=== PATIENT | male | born 1960 | race Caucasian/White ===

== ENCOUNTER 2017-01-15 01:15 | Emergency (ER) | payer BC, OTHER ==
[2017-01-15] MEDS ORDERED: predniSONE 20 MG TABLET (UD) PO ONE (02:18)
--- NOTE | 2017-01-15 02:23 | PDOC ---
History of Present Illness - General History Source: Patient Exam Limitations: No Limitations - History of Present Illness Initial Comments: 01/15/17 02:30 The patient is a 56 year old male with significant past medical history of COPD , asthma, and anxiety who presents to the ED with 2 days of difficulty breathing. Patient reports his SOB is worsened when lying supine and thus needed to add an extra pillow. He states using his ventolin about 8x yesterday and 4x tonight with no improvement. He also has complaints of wheezing and dry cough. He denies history of hospitalizations or intubations for his asthma exacerbation. The patient denies fever, chills, diaphoresis, chest pain, and palpitations. The patient denies abdominal pain, nausea, vomiting, and diarrhea. Allergies: NKDA Social History: Quit smoking about 2 months ago (PPD for 30+ years) Family History: brother has CAD, mother lung CA Past Surgical History: None reported PCP: Dr. Beau Nicholas <Perla Trivedi - Last Filed: 01/15/17 02:30> <[place] - Last Filed: 01/15/17 03:18> - General Chief Complaint: Shortness of Breath Stated Complaint: DIFFICULTY BREATHING/COPD Time Seen by Provider: 01/15/17 02:07 Past History <Perla Trivedi - Last Filed: 01/15/17 02:30> - Past Medical History Asthma: Yes Cardiac Disorders: No COPD: Yes Diabetes: No HTN: No Hypercholesterolemia: No Suicide Attempt (Hx): No Lung CA: No - Immunization History Immunization Up to Date: Yes - Psycho/Social/Smoking Cessation Hx Anxiety: No Suicidal Ideation: No Smoking Status: No Smoking History: Current every day smoker Years of Tobacco Use: 30 Have you smoked in the past 12 months: Yes Number of Cigarettes Smoked Daily: 12 If you are a former smoker, when did you quit?: 08/2012 Cigars Per Day: 0 Hx Alcohol Use: No Drug/Substance Use Hx: No Substance Use Type: None <[place] - Last Filed: 01/15/17 03:18> - Past Medical History Allergies/Adverse Reactions: Allergies Allergy/AdvReac Type Severity Reaction Status Date / Time shellfish derived Allergy Swelling Verified 01/15/17 02:28 Home Medications: Ambulatory Orders Albuterol 0.083% Nebulizer Celsa [Ventolin 0.083% Nebulizer Soln -] 1 neb NEB QID PRN #0 vial 11/02/12 Albuterol Sulfate Inhaler - [Ventolin HFA Inhaler -] 2 inh IH Q6H PRN #0 inh 08/06 Alprazolam [Xanax] 0.125 mg PO BID #0 tablet 11/02/12 Budesonide/Formeterol Fumarate [SYMBICORT 80/4.5mcg -] 1 inh PO DAILY 09/07/15 Respiratory Specific PMHX - Complaint Specific PMHX Angina: No Bronchitis: Yes Pulmonary Embolus: No TB (Tuberculosis): No <[place] - Last Filed: 01/15/17 03:18> Review of Systems - Review of Systems Able to Perform ROS?: Yes Comments:: 01/15/17 02:31 +SOB, orthopnea, wheezing, dry cough Absent: fever, chills, diaphoresis, chest pain, abdominal pain, nausea, vomiting , and diarrhea <Perla Trivedi - Last Filed: 01/15/17 02:30> *Physical Exam - Physical Exam General Appearance: Yes: Nourished, Appropriately Dressed. No: Apparent Distress HEENT: positive: Normal ENT Inspection Neck: positive: Supple. negative: Tender, Stridor Respiratory/Chest: positive: Lungs Clear, Wheezing. negative: Chest Tender, Respiratory Distress Cardiovascular: positive: Regular Rhythm, Regular Rate Extremity: positive: Normal Capillary Refill. negative: Pedal Edema Integumentary: positive: Normal Color. negative: Cyanotic Neurologic: positive: Fully Oriented, Alert, Normal Mood/Affect, Normal Response , Motor Strength 5/5 <[place] - Last Filed: 01/15/17 03:18> *DC/Admit/Observation/Transfer - Attestations Scribe Attestion: 01/15/17 02:31 Documentation prepared by Perla Trivedi, acting as medical insurance claims specialist for [place] Suarez MD. <Perla Trivedi - Last Filed: 01/15/17 02:30> <[place] - Last Filed: 01/15/17 03:18> Diagnosis at time of Disposition: Chronic obstructive asthma with exacerbation - Discharge Dispostion Disposition: HOME Condition at time of disposition: Improved - Referrals Referrals: Terrie Nicholas [Primary Care Provider] - Call tomorrow - Patient Instructions Additional Instructions: CONTINUE MEDICATIONS PRESCRIBED RETURN TO ER IF WORSENING OR NEW SYMPTOMS CALL YOUR DOCTOR IN AM
[2017-01-15] MEDS ORDERED: ALBUTEROL SO4 2.5/IPRATROPIUM 0.5 INH SOL 3 ML VIAL.NEB. NEB ONE (02:24)
[2017-01-15 02:30] VITALS: TEMP 98; BMI 19.3
[2017-01-15] MEDS: ALBUTEROL SO4 2.5/IPRATROPIUM 0.5 INH SOL 3 ML VIAL.NEB. NEB SCH ×4 (02:30→03:19)
[2017-01-15] MEDS ORDERED: predniSONE 20 MG TABLET (UD) ONE (02:31)
[2017-01-15 03:17] VITALS: BP 138/95; PULSE 88
== END 2017-01-15 03:25 | disposition home or self-care (01) ==
LOC: JER 01:15
PROC: 3E0F7GC Introduction of Other Therapeutic Substance into Respiratory Tract, Via Natural or Artificial Opening (ICD-10-PCS; principal; 2017-01-15)
DX: J44.1 Chronic obstructive pulmonary disease with (acute) exacerbation (principal); F17.210 Nicotine dependence, cigarettes, uncomplicated; F41.9 Anxiety disorder, unspecified
CPT/HCPCS: 99282-25

== ENCOUNTER 2022-01-05 12:10 | Emergency (ER) | payer BC, OTHER ==
[2022-01-05 12:57] VITALS: BP 156/99; PULSE 100; TEMP 98.2; BMI 25.0
[2022-01-05] MEDS ORDERED: CEFAZOLIN 1 GM in DEXTROSE 5%-WATER - 50 ML IVPB ONE (13:50)
[2022-01-05] MEDS ORDERED: ceFAZolin SODIUM 1 GM VIAL ONE (13:55)
[2022-01-05 14:50] LABS: BASO % 0.3 % (0-2.0); EOS % 1.3 % (0-4.5); HEMOGLOBIN 14.3 GM/dL (11.7-16.9); LYMPH % 16.1 % (8-40); MCH 28.2 pg (25.7-33.7); MCHC 32.5 g/dl (32.0-35.9); MEAN CELL VOLUME 86.8 fl (80-96); MEAN PLT VOLUME 8.6 fl (7.5-11.1); MONO % 8.3 % (3.8-10.2); PLATELET COUNT 280 10^3/uL (134-434); RBC 5.07 M/mm3 (4.00-5.60); RDW 14.9 % (11.9-15.9)
[2022-01-05 15:14] LABS: ALBUMIN 3.8 g/dl (3.4-5.0); BLOOD UREA NITROGEN 19.3 mg/dL (7-18)
[2022-01-05 15:17] LABS: CREATININE 0.8 mg/dL (0.55-1.3)
[2022-01-05 15:18] LABS: TOT PROT 7.2 g/dl (6.4-8.2)
[2022-01-05 15:19] LABS: BILIRUBIN,TOTAL 0.7 mg/dL (0.2-1)
== END 2022-01-05 17:03 | disposition home or self-care (01) ==
LOC: JER 12:10
DX: S82.892A Other fracture of left lower leg, initial encounter for closed fracture (principal); W01.0XXA Fall on same level from slipping, tripping and stumbling without subsequent striking against object, initial encounter
CPT/HCPCS: 36415; 73610-TC-LT-FY; 80053; 85025; 93971-TC; 99284-25

== ENCOUNTER 2022-01-19 07:24 | Day surgery (SDC) | payer BC, OTHER ==
[2022-01-16 15:57] VITALS: BMI 25.0
[2022-01-19] MEDS ORDERED: ROPIVACAINE HCL/PF 100 MG/20 ML VIAL ONE (10:38)
[2022-01-19] MEDS ORDERED: MIDAZOLAM HCL 2 MG/2 ML SINGLE DOSE VIAL ONE ×3 (10:38→13:22)
[2022-01-19] MEDS ORDERED: PROPOFOL 20 ML ONE (12:26)
[2022-01-19] MEDS ORDERED: ceFAZolin SODIUM 1 GM VIAL ONE (12:44)
[2022-01-19] MEDS ORDERED: oxyCODONE HCL 5 MG TABLET PO PRN ×2 (14:09)
[2022-01-19] MEDS ORDERED: ONDANSETRON 4 MG/2 ML VIAL IVPUSH PRN (14:09)
[2022-01-19 15:16] VITALS: TEMP 97
[2022-01-19 16:30] VITALS: BP 153/93; PULSE 100
== END 2022-01-19 16:40 | disposition home or self-care (01) ==
LOC: FASU 07:24
PROVIDERS: ATTEND Orthopaedic Surgery
PROC: 0QSK04Z Reposition Left Fibula with Internal Fixation Device, Open Approach (ICD-10-PCS; principal; 2022-01-19 13:00)
DX: S82.832A Other fracture of upper and lower end of left fibula, initial encounter for closed fracture (principal); X58.XXXA Exposure to other specified factors, initial encounter; Y93.9 Activity, unspecified; Y92.9 Unspecified place or not applicable
CPT/HCPCS: 27792; C1713; 73610-TC-LT-FY; 94760

== ENCOUNTER 2025-04-22 09:53 | Emergency (ER) | payer OTHER, BC ==
[2025-04-22 10:31] VITALS: BP 166/99; PULSE 95; RESP 18; TEMP 98; BMI 24.2
== END 2025-04-22 12:50 | disposition home or self-care (01) ==
LOC: JERFT 09:53
DX: S50.861A Insect bite (nonvenomous) of right forearm, initial encounter (principal); R21 Rash and other nonspecific skin eruption; W57.XXXA Bitten or stung by nonvenomous insect and other nonvenomous arthropods, initial encounter
CPT/HCPCS: 36415; 86618; 99283-25